=== PATIENT | male | born 1990 | race Caucasian/White ===

== ENCOUNTER 2016-07-16 11:11 | Emergency (ER) | payer OTHER ==
--- NOTE | 2016-07-16 11:29 | ER Document Report ---
ED Cardiac - General Chief Complaint: dysrhyth Stated Complaint: POSSIBLE AFIB Mode of Arrival: Ambulatory Information source: Patient TRAVEL OUTSIDE OF THE [place] IN LAST 30 DAYS: No - HPI Patient complains to provider of: Palpitations Use of: denies: Alcohol, Amphetamines, Bath salts, Caffeine, Cocaine, Decongestants Was the onset of pain: Sudden When did pain begin: THIS AM Is the pain a: Chronic problem - RECURRENT Quality of pain: None Severity now: None Chest pain precipitating factors: At Rest - EATING BREAKFAST Cardiac risk factors: None, Hypertension. denies: Diabetes, Smoker, Dyslipidemia, Hx [place] Positive cardiac history: Yes Associated symptoms: Palpitations Exacerbated by: Denies Relieved by: Nothing Similar symptoms previously: Yes Recently seen / treated by doctor: No Past Medical History - General Information source: Patient - Social History Smoking Status: Former Smoker Cigarette use (# per day): No Chew tobacco use (# tins/day): No Frequency of alcohol use: Rare Drug Abuse: None Lives with: Family Family History: Reviewed & Not Pertinent - Past Medical History Cardiac Medical History: Reports: Hx Atrial Fibrillation Pulmonary Medical History: Reports: None EENT Medical History: Reports: None Neurological Medical History: Reports: None Endocrine Medical History: Reports: None Renal/ Medical History: Reports: None Malignancy Medical History: Reports None GI Medical History: Reports: None Musculoskeltal Medical History: Reports None Psychiatric Medical History: Reports: None Past Surgical History: Reports: Hx Cardiac Catheterization - ABLATION, Hx Orthopedic Surgery - Immunizations Hx Diphtheria, Pertussis, Tetanus Vaccination: Yes Review of Systems - Review of Systems Constitutional: No symptoms reported EENT: No symptoms reported Cardiovascular: See HPI Respiratory: No symptoms reported Gastrointestinal: No symptoms reported Genitourinary: No symptoms reported Musculoskeletal: No symptoms reported Skin: No symptoms reported Neurological/Psychological: No symptoms reported Physical Exam - Vital signs Vitals: Resp Pulse Ox 18 98 07/16/16 11:24 07/16/16 11:24 Interpretation: Hypertensive, Tachycardic - General General appearance: Appears well, Alert In distress: None - HEENT Head: Normocephalic Eyes: Normal Conjunctiva: Normal Ears: Normal Nasal: Normal Mouth/Lips: Normal Mucous membranes: Normal Pharynx: Normal Neck: Normal. No: Neck mass, Thyromegally - Respiratory Respiratory status: No respiratory distress Breath sounds: Normal - Cardiovascular Rhythm: Irregularly irregular - PAC's Heart sounds: Normal auscultation Murmur: No - Abdominal Inspection: Normal Distension: No distension Bowel sounds: Normal - Back Back: Normal - Extremities General upper extremity: Normal inspection General lower extremity: Normal inspection. No: Tender, Edema - Neurological Neuro grossly intact: Yes Cognition: Normal Orientation: AAOx4 - Psychological Associated symptoms: Normal affect, Normal mood - Skin Skin Temperature: Warm Skin Moisture: Dry Skin Color: Normal Skin Turgor: Elastic Course - Re-evaluation Re-evalutation: 07/16/16 14:19 Patient reports he's feeling much better. Palpitations have resolved. Results of radiographic and laboratory testing discussed. Will suggest increasing his daily dose of metoprolol 50% and follow-up with director global development. 07/16/16 15:42 As patient was about to be discharged, he complained of recurrent palpitations. monitoring engineer showed sinus rhythm with premature atrial contractions of varying frequency. Nothing was observed that resembled SVT, PAT, or atrial fibrillation. Patient is reassured, instructed to minimize his activity for the rest of the day, and he is comfortable with this advice. - Vital Signs Vital signs: Temp Pulse Resp BP Pulse Ox 15 118/84 98 07/16/16 15:00 07/16/16 14:46 07/16/16 15:00 - Laboratory Result Diagrams: 07/16/16 11:30 07/16/16 11:30 Laboratory results interpreted by me: 07/16/16 07/16/16 11:30 11:30 RBC 5.71 H AST 68 H ALT 128 H - Diagnostic Test Radiology reviewed: Image reviewed, Reports reviewed - EKG Interpretation by Vt EKG shows normal: Sinus rhythm, [place], Intervals, QRS Complexes, ST-T Waves Rate: Tachycardia Rhythm: APC's Discharge - Discharge Clinical Impression: Palpitations Atrial fibrillation Qualifiers: Atrial fibrillation type: paroxysmal Qualified Code(s): I48.0 - Paroxysmal atrial fibrillation Condition: Stable Disposition: HOME, SELF-CARE Instructions: Palpitations (Irregular or Rapid Heartrate) ([facility]) Additional Instructions: INCREASE YOUR METOPROLOL TO 50 mg IN THE MORNING AND 25 mg IN THE EVENING. CONTINUE OTHER MEDS BEFORE. 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
[2016-07-16 11:46] LABS: ABSOLUTE EOSINOPHILS # (AUTO) 0.2 10^3/uL (0.0-0.6); ABSOLUTE LYMPHOCYTES (AUTO) 3.2 10^3/uL (0.5-4.7); ABSOLUTE MONOCYTES (AUTO) 0.5 10^3/uL (0.1-1.4); ABSOLUTE NEUT (AUTO) 3.4 10^3/uL (1.7-8.2); BASOPHILS % (AUTO) 0.6 % (0-2); EOSINOPHILS % (AUTO) 2.1 % (0-6); HEMATOCRIT 47.7 % (37.9-51.0); HEMOGLOBIN 16.7 g/dL (13.5-17.0); HGB HCT DIFFERENCE 2.4; LYMPHOCYTES % (AUTO) 43.6 % (13-45); MEAN CORPUSCULAR HEMOGLOBIN 29.2 pg (27.0-33.4); MEAN CORPUSCULAR VOLUME 83 fl (80-97); MONOCYTES % (AUTO) 6.7 % (3-13); RED BLOOD COUNT 5.71 10^6/uL (4.35-5.55); WHITE BLOOD COUNT 7.2 10^3/uL (4.0-10.5)
[2016-07-16 12:08] LABS: ALANINE AMINOTRANSFERASE 128 U/L (21-72); ALBUMIN 4.8 g/dL (3.5-5.0); ALKALINE PHOSPHATASE 112 U/L (38-126); ANION GAP 14 (5-19); ASPARTATE AMINO TRANSFERASE 68 U/L (17-59); BILIRUBIN,TOTAL 0.7 mg/dL (0.2-1.3); BLOOD UREA NITROGEN 17 mg/dL (7-20); CALCIUM 9.6 mg/dL (8.4-10.2); CARBON DIOXIDE 24 mmol/L (22-30); CHLORIDE 105 mmol/L (98-107); CREATINE KINASE 81 U/L (55-170); CREATININE RESULT 0.94 mg/dL (0.52-1.25); GLUCOSE 105 mg/dL (75-110); MAGNESIUM 1.9 mg/dL (1.6-2.3); POTASSIUM 4.7 mmol/L (3.6-5.0); SODIUM 143.1 mmol/L (137-145)
[2016-07-16 12:17] LABS: TROPONIN I < 0.012 ng/mL
[2016-07-16] MEDS ORDERED: METOPROLOL TARTRATE 25 MG TABLET PO ONE (13:23)
[2016-07-16] MEDS ORDERED: MAGNESIUM OXIDE 400 MG TABLET PO ONE (13:23)
--- NOTE | 2016-07-16 15:02 | EKG REPORT ---
SEVERITY:- ABNORMAL ECG - SINUS TACHYCARDIA MULTIPLE ATRIAL PREMATURE COMPLEXES : Confirmed by: Rajiv Olvera MD 16-Jul-2016 15:01:28
[2016-07-16 16:12] VITALS: BP 133/92
== END 2016-07-16 16:12 | disposition home or self-care (01) ==
LOC: ER 11:11
DX: I48.0 Paroxysmal atrial fibrillation (principal); I49.1 Atrial premature depolarization; Z87.891 Personal history of nicotine dependence
CPT/HCPCS: 36415; 71010; 80053; 82550; 82553; 83735; 84484; 85025; 93005; 93010; 99285

== ENCOUNTER 2018-10-13 19:58 | Emergency (ER) | payer OTHER ==
[2018-10-13] MEDS ORDERED: KETOROLAC TROMETHAMINE 60 MG/2 ML SDV IM ONE (20:38)
--- NOTE | 2018-10-13 20:40 | ER Document Report ---
ED Medical Screen (RME) - General Chief Complaint: Foot Pain Stated Complaint: RIGHT FOOT PAIN Time Seen by Provider: 10/13/18 20:38 Notes: 28-year-old male with chief complaint of severe pain to the right posterior foot and Achilles tendon area since yesterday. He took ibuprofen during the morning, attempted to wrap it during the day, states he is having trouble bearing weight on the foot. Denies history of the same, denies injury. Denies calf or leg pain. 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 Denies history of gout. Denies fever or chills. TRAVEL OUTSIDE OF THE [place] IN LAST 30 DAYS: No - Related Data Allergies/Adverse Reactions: Penicillins Allergy (Verified 10/13/18 20:04) Past Medical History - Past Medical History Cardiac Medical History: Reports: Hx Atrial Fibrillation Past Surgical History: Reports: Hx Cardiac Catheterization - ABLATION, Hx Cardiac Surgery, Hx Orthopedic Surgery - Immunizations Hx Diphtheria, Pertussis, Tetanus Vaccination: Yes Physical Exam - Vital signs Vitals: Temp Pulse Resp BP Pulse Ox 98.2 F 97 15 151/93 H 97 10/13/18 20:08 10/13/18 20:08 10/13/18 20:08 10/13/18 20:08 10/13/18 20:08 - Extremities General lower extremity: Other - Very tender over the posterior aspect of the right foot specifically over the Achilles tendon area. I do not appreciate any specific erythema, swelling, or abnormal heat. Normal distal neurovascular exam. Nontender calf. No lower extremity swelling noted. Course - Re-evaluation Re-evalutation: I have greeted and performed a rapid initial assessment of this patient. A comprehensive ED assessment and evaluation of the patient, analysis of test results and completion of the medical decision making process will be conducted by additional ED providers. - Vital Signs Vital signs: Temp Pulse Resp BP Pulse Ox 98.2 F 97 15 151/93 H 97 10/13/18 20:08 10/13/18 20:08 10/13/18 20:08 10/13/18 20:08 10/13/18 20:08
--- NOTE | 2018-10-13 21:14 | RADIOLOGY REPORT (SQ) ---
EXAM DESCRIPTION: XR ANKLE 3 OR MORE VIEWS COMPLETED DATE/TME: 10/13/2018 20:38 CLINICAL HISTORY: 28 years, Male, right ankle pain COMPARISON: None. FINDINGS: No fracture or dislocation. Soft tissues are unremarkable. IMPRESSION: No acute abnormality.
--- NOTE | 2018-10-13 21:29 | RADIOLOGY REPORT (SQ) ---
EXAM DESCRIPTION: XR FOOT 3 OR MORE VIEWS COMPLETED DATE/TME: 10/13/2018 00:00 CLINICAL HISTORY: 28 years, Male, Painful R foot. Unable to bear weight. No injury COMPARISON: None. NUMBER OF VIEWS: 3 TECHNIQUE: Three views RIGHT foot were obtained in AP, lateral and oblique projections LIMITATIONS: None. FINDINGS: There is no fracture or dislocation. The joint spaces are preserved. No soft tissue abnormalities are seen. Medial bipartite sesamoid. IMPRESSION: No acute radiographic abnormality. copyright 2010 [employer]- All Rights Reserved
--- NOTE | 2018-10-14 01:02 | ER Document Report ---
ED General - General Chief Complaint: Foot Pain Stated Complaint: RIGHT FOOT PAIN Time Seen by Provider: 10/13/18 20:38 Notes: Patient is a 28-year-old male with a past medical history of celiac disease who presents with 2 days of right posterior foot pain. Patient states the pain started gradually 2 days ago and has progressively worsened since onset. Describes as a severe, throbbing, constant pain to the back of his right foot over the areas of the Achilles tendon. He states that walking especially when he lifts his foot dramatically worsens the pain. Has not tried anything to improve the pain. Denies any direct trauma to the area. No history of similar symptoms in the past. Has noticed some mild redness and swelling to the area but this has not increased since the initial onset of the pain. Has not had fever or constitutional symptoms. Has not seen his primary care doctor regarding today's concerns. TRAVEL OUTSIDE OF THE [place] IN LAST 30 DAYS: No - Related Data Allergies/Adverse Reactions: Penicillins Allergy (Verified 10/13/18 20:04) Past Medical History - General Information source: Patient - Social History Smoking Status: Never Smoker Frequency of alcohol use: Occasional Drug Abuse: None Lives with: Family Family History: Reviewed & Not Pertinent Patient has suicidal ideation: No Patient has homicidal ideation: No - Past Medical History Cardiac Medical History: Reports: Hx Atrial Fibrillation Renal/ Medical History: Denies: Hx Peritoneal Dialysis Past Surgical History: Reports: Hx Cardiac Catheterization - ABLATION, Hx Cardiac Surgery, Hx Orthopedic Surgery - Immunizations Hx Diphtheria, Pertussis, Tetanus Vaccination: Yes Review of Systems - Review of Systems Notes: Constitutional: Negative for fever. HENT: Negative for sore throat. Eyes: Negative for visual changes. Cardiovascular: Negative for chest pain. Respiratory: Negative for shortness of breath. Gastrointestinal: Negative for abdominal pain, vomiting or diarrhea. Genitourinary: Negative for dysuria. Musculoskeletal: Positive for right foot pain Skin: Negative for rash. Neurological: Negative for headaches, weakness or numbness. 10 point ROS negative except as marked above and in HPI. Physical Exam - Vital signs Vitals: Temp Pulse Resp BP Pulse Ox 98.2 F 97 15 151/93 H 97 10/13/18 20:08 10/13/18 20:08 10/13/18 20:08 10/13/18 20:08 10/13/18 20:08 Interpretation: Hypertensive Notes: PHYSICAL EXAMINATION: GENERAL: Well-appearing, well-nourished and in no acute distress. HEAD: Atraumatic, normocephalic. EYES: sclera anicteric, conjunctiva are normal. ENT: Moist mucous membranes. NECK: Normal range of motion LUNGS: Normal work of breathing HEART: 2+ DP pulses bilaterally. Capillary refill less than 1 second in all digits of the right foot EXTREMITIES: no pitting or edema. No cyanosis. Patient is able to dorsi and plantar flex the right foot although with significant discomfort on both ranges of motion. Able to invert and romeo the foot without pain or limited range of motion. NEUROLOGICAL: No focal neurological deficits. Moves all extremities spontaneously and on command. PSYCH: Normal mood, normal affect. SKIN: Warm, Dry, normal turgor, there is mild redness swelling but no fluctuance to the base of the posterior aspect of the right foot where the Achilles tendon attaches. Course - Re-evaluation Re-evalutation: 10/14/18 01:01 Patient presents with pain over the distal aspect of the right Achilles tendon. Patient has pain with both dorsi and plantar flexion of the foot although not with eversion or inversion. There is mild redness and swelling to the area although no fluctuance. No warmth to the area. Clinical history inconsistent with cellulitis, abscess, and this is not over a joint space to suggested a septic joint or gouty arthritis. No pain over the calf, behind the knee, no suspicion for DVT at this point. Maximilian wrap was then applied, patient has been provided crutches for reduction of pain. NSAID therapy recommended. At this time will discharge with return precautions and follow-up recommendations. Verbal discharge instructions given a the bedside and opportunity for questions given. Medication warnings reviewed. Patient is in agreement with this plan and has verbalized understanding of return precautions and the need for primary care follow-up in the next 24-72 hours. - Vital Signs Vital signs: Temp Pulse Resp BP Pulse Ox 98.6 F 70 18 136/83 H 97 10/14/18 01:12 10/14/18 01:12 10/14/18 01:12 10/14/18 01:12 10/14/18 01:12 - Diagnostic Test Radiology reviewed: Image reviewed, Reports reviewed Radiology results interpreted by me: 10/14/18 01:02 Right ankle x-ray: No acute fracture or dislocation Right foot x-ray: No acute fracture or dislocation Discharge - Discharge Clinical Impression: Achilles tendinitis of right lower extremity Condition: Good Disposition: HOME, SELF-CARE Additional Instructions: Your x-ray does not show any acute fracture today. You likely have a ligamentous strain. You should continue to take anti-inflammatories such as ibuprofen 800 mg every 6 hours. Continue to apply ice to the area is much your able. Avoid bearing weight if you were able to do so with crutches. Continue to gently stretch the area. Please follow-up with your primary care physician if you do not have improving your symptoms in the next 1-2 weeks. Please return immediately if you develop weakness, numbness, spreading redness from the area, or any other symptoms that are concerning to you.
[2018-10-14 01:13] VITALS: BP 136/83
== END 2018-10-14 01:17 | disposition home or self-care (01) ==
LOC: ER 19:58
DX: M76.61 Achilles tendinitis, right leg (principal); M79.671 Pain in right foot; Z88.0 Allergy status to penicillin
CPT/HCPCS: 99283; 96372; 73610; 73630; J1885

== ENCOUNTER → 2019-04-07 | Outpatient (CLI) | payer OTHER ==
--- NOTE | 2019-04-08 01:38 | DRAGON STRESS TEST REPORT ---
Exercise EKG treadmill stress test. Data procedure: 05/07/2019.Ordering Provider: Ms. Mervat HULL. Patient Status: Outpatient. Indication: History of shortness of breath and palpitations in a patient with a history of ablation for atrial fibrillation. Significant physical findings prior to stress testing show a blood pressure of 137/90 and a heart rate of 93 beat per minute. Auscultation of the heart shows normal S1 and S2.NoS3 or S4 gallops. Systolic murmur in the left sternal border and apex. Lungs are clear to auscultation and percussion. Resting 12-lead EKG:. Sinus Rhythm. High QRS voltage normal for age Procedure: The patient was excised on a standard Angel protocol. . The patient walked a total of 6 minutes and 40 seconds on this protocol and reached a peak heart rate of 166 beats per minute, which is 86% t of maximum predicted heart rate for age. This is at a workload of 8.50 METS. The test was stopped because of achievement of adequate heart rate.. The patient described no symptoms of chest pain/discomfort, and there were no recurrence of atrial fibrillation or any ventricular arrhythmias seen. Exercise EKG's show:. There is no EKG evidence of exercise-induced myocardial ischemia. Arrhythmias seen:None. Especially there is no recurrence of atrial fibrillation The blood pressure response was hypertensive. At peak exercise the blood pressure was 201/83 millimeters of Hg. The double product was 33.3 K. Summary of findings and interpretation: 1. No chest pain or chest discomfort symptoms reproduced. 2. No EKG evidence of ischemia in the form of ST segment depression. 3. Normal blood pressure response. 4. No arrhythmias seen. Partially no recurrence of atrial fibrillation with exercise. 5. Good exercise tolerance, good aerobic capacity. Diagnostic treadmill stress test negative for ischemia by EKG criteria, no exercise induced recurrence of atrial fibrillation. Recommendations: 1. Aggressive control of blood pressure. 2. Aggressive risk factor modification, and treatment of underlying co- morbidities. MTDD
== END ==
LOC: RAD 08:58
PROVIDERS: ATTEND Physician Assistant Medical
DX: R06.00 Dyspnea, unspecified (principal)
CPT/HCPCS: 93017